=== PATIENT | male | born 1990 | race Two or more races ===

== ENCOUNTER 2019-02-20 05:24 | Emergency (ER) | payer BC ==
[~2019-02-20] VITALS: Ht 190.5 cm; Wt 121.6 kg
[2019-02-20 06:30] LABS: Basophils # (auto) 0.1 uL; Basophils % (auto) 0.3 % (0.0-2.0); Eosinophils # (auto) 0 uL; Eosinophils % (auto) 0.1 % (0.0-7.0); Hematocrit 49.4 % (41.0-53.0); Hemoglobin 16.8 g/dL (13.5-17.5); Lymphocytes # (auto) 1.7 uL; Mean Corpuscular Hemoglobin 29.9 pg (28.0-32.0); Mean Corpuscular Hgb Conc. 33.9 g/dL (32.0-36.0); Mean Corpuscular Volume 88.2 fL (80.0-100.0); Monocytes # (auto) 0.9 uL; Monocytes % (auto) 5.2 % (0.0-12.0); Neutrophils # (auto) 14.9 uL; Neutrophils % (auto) 84.4 % (37.0-80.0); Nucleated Red Blood Cells % 0.1 %; Platelet Count (auto) 266 10^3/uL (140-450); Red Cell Distribution Width 13.9 % (11.8-14.3); White Blood Cell 17.6 10^3/uL (4.4-10.8)
[2019-02-20 06:45] LABS: Albumin 4.2 g/dL (3.4-5.0); BUN/Creatinine Ratio 13.4; Calcium 8.7 mg/dL (8.5-10.1); Potassium 3.7 mmol/L (3.5-5.1)
[2019-02-20 06:48] LABS: Bilirubin, Total 0.6 mg/dL (0.2-1.0); Total Protein 8.5 g/dL (6.4-8.2)
[2019-02-20 08:25] LABS: Urine Bacteria NONE SEEN /hpf (None Seen); Urine Blood 1+ /uL (Negative); Urine Mucus FEW (None Seen); Urine Specific Gravity 1.027 (1.001-1.035); Urine WBC 2 /hpf (0 - 3)
[2019-02-20] MEDS ORDERED: ACETAMINOPHEN 500 MG TAB PO ONE (08:30)
[2019-02-20 08:46] VITALS: BP 105/63
== END 2019-02-20 09:42 | disposition home or self-care (01) ==
LOC: ER 05:24
DX: S00.83XA Contusion of other part of head, initial encounter (principal); S69.92XA Unspecified injury of left wrist, hand and finger(s), initial encounter; S59.901A Unspecified injury of right elbow, initial encounter; J32.9 Chronic sinusitis, unspecified; S80.812A Abrasion, left lower leg, initial encounter; V28.5XXA Motorcycle passenger injured in noncollision transport accident in traffic accident, initial encounter; Y93.89 Activity, other specified; Y99.8 Other external cause status; Y92.820 Desert as the place of occurrence of the external cause
CPT/HCPCS: 29105; 29125; 36415; 70450; 70486; 71250; 72125; 73030; 73080; 73090; 73110; 73562; 73590; 74176; 80053; 81001; 85025

== ENCOUNTER 2020-04-18 23:32 | Emergency (ER) | payer BC ==
[~2020-04-18] VITALS: Ht 190.5 cm; Wt 127.0 kg
[2020-04-18 23:45] VITALS: BP 127/92
== END 2020-04-19 01:48 | disposition home or self-care (01) ==
LOC: ER 23:32
DX: U07.1 COVID-19 (principal); R19.7 Diarrhea, unspecified; R53.83 Other fatigue; R11.2 Nausea with vomiting, unspecified; R05 Cough; R50.9 Fever, unspecified
CPT/HCPCS: 71045; 99284; U0003